=== PATIENT | male | born 1960 | race Caucasian/White ===

== ENCOUNTER 2017-09-16 17:42 | Emergency (ER) | payer BC ==
[2017-09-16] MEDS ORDERED: Ketorolac Tromethamine 60 MG/2 ML VIAL ONE (18:57)
--- NOTE | 2017-09-16 19:40 | RAD ---
FRONTAL VIEW PELVIS: Clinical history: Pelvic pain, injury. FINDINGS: No displaced fracture is identified. Hip joints are maintained. Portions of the sacrum are obscured b y bowel content. IMPRESSION: No acute osseous abnormality of the pelvis identified. POS: [facility]
--- NOTE | 2017-09-16 20:09 | RAD ---
TWO VIEW RIGHT FEMUR SERIES: Indication: Popping sensation with injury, pain. FINDINGS: The hip joint is maintained in alignment. There is no fracture or dislocation of the right femur. Ent hesophyte formation noted at the patella is seen. There is scattered osseous degenerative change. IMPRESSION: No acute osseous abnormality of the right femur. POS: [facility]
== END 2017-09-16 20:30 | disposition home or self-care (01) ==
LOC: SCSER 17:42
DX: S76.911A Strain of unspecified muscles, fascia and tendons at thigh level, right thigh, initial encounter (principal); F17.220 Nicotine dependence, chewing tobacco, uncomplicated; X58.XXXA Exposure to other specified factors, initial encounter; Y93.02 Activity, running
CPT/HCPCS: 72170; 96372; J1885

== ENCOUNTER 2017-10-05 09:00 | Outpatient (CLI) | payer OTHER ==
--- NOTE | 2017-10-05 10:58 | MRI ---
MRI OF THE RIGHT HIP WITHOUT IV CONTRAST: INDICATION: History of right hip pain following running on when the patient heart her right hip pop and fell to the ground. FINDINGS: There is complete tear of the semimembranosis and semitendinosis insertions with portions of the conj oined tendon remaining intact to the attachement site. Fluid is present near the attachment site. T here is a small avulsion of bone seen within the avulsed tendons on image 22 of series 8 measuring 1. 3 cm. No iliopsoas or trochanteric bursitis is evident. The right gluteus minimus and medias tendon s appear within normal limits. The rectus femoris origin appears within normal limits. No enlarged lymph nodes are evident. The labrum appears within normal limits. No additional acute osseous abnor mality is evident. IMPRESSION: Near-complete avulsion of the right hamstring origins with residual portion of the conjoined tendon r emaining attached to the ischial tuberosity. No additional acute injury demonstrated. POS: [facility]
== END 2017-10-05 09:01 | disposition home or self-care (01) ==
LOC: SCSMRI 09:00
PROVIDERS: ATTEND Family Medicine
DX: M25.551 Pain in right hip (principal); R29.898 Other symptoms and signs involving the musculoskeletal system; S76.391A Other specified injury of muscle, fascia and tendon of the posterior muscle group at thigh level, right thigh, initial encounter

== ENCOUNTER 2018-01-15 12:24 | Outpatient (CLI) | payer OTHER ==
--- NOTE | 2018-01-15 15:03 | MRI ---
MRI OF THE LEFT ELBOW WITHOUT CONTRAST: Date: 01/15/18 INDICATION: Concern for biceps tendon tear. FINDINGS: There is complete disruption of the biceps tendon from the level of the bicipital tuberosity with jenna roximately 1.2 cm of retraction of the proximal torn tendon fragment. The brachialis insertion is int act. Triceps attachment is normal appearing. There is moderate increased T2 signal involving the orig in of the common flexor tendon which is likely indicative of underlying tendinosis. The common extens or origin appears within normal limits. The radial collateral and lateral ulnar collateral ligament a ppear within normal limits. The anterior band of the ulnar collateral ligament appears intact No oste ochondral lesion is grossly evident. There is a small joint effusion. The ulnar nerve appears within normal limits. IMPRESSION: 1. Complete disruption of the distal biceps tendon with retraction of the tendon 1.2 cm from the lev el of the attachment to the bicipital tuberosity of the radius. 2. Moderate tendinosis of the common flexor origin of the medial humeral epicondyle. POS: [facility]
== END 2018-01-15 12:25 | disposition home or self-care (01) ==
LOC: BICMRI 12:24
PROVIDERS: ATTEND Family Medicine
DX: S46.112A Strain of muscle, fascia and tendon of long head of biceps, left arm, initial encounter (principal); M77.02 Medial epicondylitis, left elbow
CPT/HCPCS: 70210